=== PATIENT | female | born 1960 | race Hispanic/Latino ===

== ENCOUNTER 2019-12-13 23:40 | Inpatient (IN) | payer SELFPAY ==
[~2019-12-13] VITALS: Ht 157.5 cm; Wt 57.3 kg
[2019-12-14] MEDS ORDERED: ACETAMINOPHEN EXTRA STRENGTH 500 MG TABLET ONE (00:14)
[2019-12-14] MEDS ORDERED: IBUPROFEN 600 MG TABLET ONE (00:14)
[2019-12-14] MEDS ORDERED: ZOSYN 3.375GM+NS 50ML 50 ML IV ONE (00:14)
[2019-12-14 00:18] LABS: BASOPHILS % (AUTO) 0.3 % (0.0-5.0); EOSINOPHILS % (AUTO) 0.2 % (0.0-8.0); HEMATOCRIT 30.6 % (36-48); LYMPHOCYTES % (AUTO) 9.7 % (21.0-51.0); MEAN CORPUSCULAR VOLUME 87.9 fL (79-99); MONOCYTES % (AUTO) 7.9 % (3.0-13.0); NEUTROPHILS % (AUTO) 81.4 % (40.0-77.0); PLATELET COUNT (AUTO) 246 K/uL (130-400); RED BLOOD CELL COUNT(AUTO) 3.48 MIL/uL (4.00-5.50); RED CELL DISTRIBUTION WIDTH 13.2 % (11.0-15.5)
[2019-12-14 00:22] LABS: APPEARANCE,URINE Clear (CLEAR); BILIRUBIN,URINE Negative (NEGATIVE); COLOR,URINE Yellow (YELLOW); GLUCOSE, URINE (UA) Negative (NEGATIVE); KETONES,URINE Negative (NEGATIVE); LEUKOCYTE ESTERASE ,URINE Moderate (NEGATIVE); NITRATE,URINE Negative (NEGATIVE); OCCULT BLOOD,URINE Moderate (NEGATIVE); PROTEIN,URINE POS 1+ mg/dL (NEGATIVE)
[2019-12-14 00:30] LABS: CARBON DIOXIDE 25 mmol/L (21-32); CHLORIDE 102 mmol/L (101-111); CREATININE 0.8 mg/dL (0.5-1.5); GLOMERULAR FILTR. RATE CALC 78 mL/min (>60); GLUCOSE,RANDOM 131 mg/dL (70-105); POTASSIUM 3.6 mmol/L (3.5-5.1); SODIUM SERUM 135 mmol/L (136-145); UREA NITROGEN, BLOOD 13 mg/dL (7-18)
[2019-12-14 00:37] LABS: INR 0.88 (0.85-1.15); PARTIAL THROMBOPLASTIN TIME 29.8 SEC (26.3-35.5); PROTHROMBIN TIME 9.5 SEC (9.6-11.6)
[2019-12-14 00:49] LABS: ALANINE AMINOTRANSFERASE 195 U/L (12-78); ALBUMIN 3.1 g/dL (3.5-5.0); ASPARTATE AMINOTRANSFERASE 214 U/L (10-37); BILIRUBIN,TOTAL 0.3 mg/dL (0.2-1.0); CREATINE KINASE, TOTAL 186 U/L (21-232); MYOGLOBIN 25 ng/mL (10-92); TOTAL PROTEIN, SERUM 7.2 g/dL (6.0-8.3); TROPONIN I < 0.04 ng/mL (0.00-0.06)
[2019-12-14 00:50] LABS: BACTERIA,URINE Rare /HPF (None Seen); MUCUS,URINE Few LPF (None Seen); SQUAMOUS EPITHELIAL CELL,UR Moderate /HPF (0-2)
[2019-12-14] MEDS ORDERED: ONDANSETRON HCL 4 MG/2 ML VIAL IV PRN (02:15)
[2019-12-14] MEDS: LACTATED RINGERS 1000ML 1,000 ML IV SCH ×2 (02:15→15:35)
[2019-12-14] MEDS ORDERED: ACETAMINOPHEN 325 MG TAB PO PRN (02:30)
[2019-12-14] MEDS ORDERED: LACTATED RINGERS 1000ML 1,000 ML IV ONE (02:39)
[2019-12-14 07:47] LABS: BASOPHILS % (AUTO) 0.4 % (0.0-5.0); EOSINOPHILS % (AUTO) 0.2 % (0.0-8.0); HEMATOCRIT 29.8 % (36-48); LYMPHOCYTES % (AUTO) 19.8 % (21.0-51.0); MEAN CORPUSCULAR HEMOGLOBIN 29.5 pg (27.0-33.0); MEAN CORPUSCULAR HGB CONC 32.6 g/dL (32.0-36.0); MEAN CORPUSCULAR VOLUME 90.6 fL (79-99); MONOCYTES % (AUTO) 10.5 % (3.0-13.0); NEUTROPHILS % (AUTO) 68.8 % (40.0-77.0); PLATELET COUNT (AUTO) 224 K/uL (130-400); RED BLOOD CELL COUNT(AUTO) 3.29 MIL/uL (4.00-5.50); RED CELL DISTRIBUTION WIDTH 13.5 % (11.0-15.5); WHITE BLOOD COUNT (AUTO) 11.5 K/uL (4.8-10.8)
[2019-12-14] MEDS: ZOSYN 3.375GM+NS 50ML 50 ML IV SCH ×2 (08:00→16:08)
[2019-12-14 08:16] LABS: ALBUMIN 2.7 g/dL (3.5-5.0); BILIRUBIN,DIRECT 0.1 mg/dL (0.0-0.3); BILIRUBIN,TOTAL 0.4 mg/dL (0.2-1.0); CREATININE 0.7 mg/dL (0.5-1.5); POTASSIUM 3.7 mmol/L (3.5-5.1); TOTAL PROTEIN, SERUM 6.4 g/dL (6.0-8.3)
[2019-12-14] MEDS: FAMOTIDINE/PF 20 MG/2 ML VIAL IV SCH ×2 (09:00→20:02)
[2019-12-14] MEDS ORDERED: ACETAMINOPHEN 325 MG TAB ONE (10:15)
[2019-12-14] MEDS ORDERED: TRAMADOL HCL 50 MG TABLET PO PRN (10:45)
[2019-12-14 12:07] VITALS: BP 111/61
[2019-12-14 16:00] VITALS: BP 117/74
[2019-12-14] MEDS: ACETAMINOPHEN 325 MG TAB PO PRN (16:08)
[2019-12-14 20:00] VITALS: BP 101/66
--- NOTE | 2019-12-14 21:35 | NUR ---
FREQUENTLY IN & OUT OF BED, DOES NOT KEEP SCD'S IN PLACE Addendum: 12/14/19 at 2334 by GISELE PERSAUD RN RN Amended: Links added.
[2019-12-15] VITALS: BP 110/69
[2019-12-15] MEDS: ZOSYN 3.375GM+NS 50ML 50 ML IV SCH ×3 (00:32→16:09)
[2019-12-15] MEDS: ACETAMINOPHEN 325 MG TAB PO PRN (00:38)
[2019-12-15 03:54] VITALS: BP 100/70
[2019-12-15 06:04] LABS: BASOPHILS % (AUTO) 0.6 % (0.0-5.0); EOSINOPHILS % (AUTO) 1.1 % (0.0-8.0); HEMATOCRIT 29.4 % (36-48); LYMPHOCYTES % (AUTO) 33.7 % (21.0-51.0); MEAN CORPUSCULAR HEMOGLOBIN 28.8 pg (27.0-33.0); MEAN CORPUSCULAR HGB CONC 32.7 g/dL (32.0-36.0); MEAN CORPUSCULAR VOLUME 88.3 fL (79-99); MONOCYTES % (AUTO) 12.8 % (3.0-13.0); NEUTROPHILS % (AUTO) 51.6 % (40.0-77.0); PLATELET COUNT (AUTO) 263 K/uL (130-400); RED BLOOD CELL COUNT(AUTO) 3.33 MIL/uL (4.00-5.50); RED CELL DISTRIBUTION WIDTH 13.3 % (11.0-15.5); WHITE BLOOD COUNT (AUTO) 8.4 K/uL (4.8-10.8)
[2019-12-15 06:16] LABS: ALBUMIN 2.5 g/dL (3.5-5.0); BILIRUBIN,TOTAL 0.2 mg/dL (0.2-1.0); CREATININE 0.8 mg/dL (0.5-1.5); POTASSIUM 3.5 mmol/L (3.5-5.1); TOTAL PROTEIN, SERUM 6.5 g/dL (6.0-8.3)
[2019-12-15 08:00] VITALS: BP 111/73
[2019-12-15] MEDS: FAMOTIDINE/PF 20 MG/2 ML VIAL IV SCH ×2 (08:51→21:00)
[2019-12-15] MEDS: LACTATED RINGERS 1000ML 1,000 ML IV SCH (08:52)
[2019-12-15 09:02] LABS: % IRON SATURATION 13.9 % (22-44)
[2019-12-15] MEDS ORDERED: KETOROLAC TROMETHAMINE 15MG/ML IV SCH (09:45)
[2019-12-15 11:00] VITALS: BP 98/58
--- NOTE | 2019-12-15 14:53 | NUR ---
INITIAL SW met with patient. Patient lives with daughter, Corina Delgado, [phone]. No home services or DME. Patient is able to complete ADL's independently and drives. 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 PCP is Dr. Yadiel Bernal. Pharmacy is [facility] in [place]. DCP is home. Patient has no insurance or benefits. She is a [place] citizen. Patient was provided with community resources for post hospitalization follow up. Patient was also provided with Good RX card for prescriptions and educated on [facility] $4 medication program and [facility] [employer] $5 medication program. Patient is being assisted by [facility] for financial matters. Addendum: 12/15/19 at 1456 by GISELE SORIANO SS Amended: Links added.
[2019-12-15 16:00] VITALS: BP 115/16
[2019-12-15 20:00] VITALS: BP 123/73
[2019-12-16] VITALS: BP 107/65
[2019-12-16] MEDS: ZOSYN 3.375GM+NS 50ML 50 ML IV SCH ×2 (01:43→09:00)
[2019-12-16] MEDS: LACTATED RINGERS 1000ML 1,000 ML IV SCH ×2 (01:54→07:35)
[2019-12-16 03:59] VITALS: BP 108/68
[2019-12-16 06:30] LABS: ALBUMIN 2.6 g/dL (3.5-5.0); BILIRUBIN,DIRECT 0.1 mg/dL (0.0-0.3); BILIRUBIN,TOTAL 0.1 mg/dL (0.2-1.0); CREATININE 0.7 mg/dL (0.5-1.5); POTASSIUM 3.7 mmol/L (3.5-5.1); TOTAL PROTEIN, SERUM 6.6 g/dL (6.0-8.3)
[2019-12-16 07:41] VITALS: BP 117/69
[2019-12-16] MEDS: FAMOTIDINE/PF 20 MG/2 ML VIAL IV SCH (09:00)
[2019-12-16 11:06] VITALS: BP 109/56
[2019-12-16] MEDS: ACETAMINOPHEN 325 MG TAB PO PRN (13:56)
--- NOTE | 2019-12-16 16:56 | NUR ---
PT PENDING TRANSPORTATION HOME TEACH BACK TECHNIQUE GIVEN RE; NEW MEDS, S/S TO WATCH FOR AND WHEN TO CALL MD OR 911. FOLLOW UP WITH YOUR PRIMARY DOCTOR IN 2-4 DAYS FOR TRANSITION OF CARE. (WE WERE UNABLE TO MAKE AN APPOINTMENT SINCE OFFICE DID NOT ANSWER PRIOR TO YOUR DISCHARGE FROM THE HOSPITAL), PLEASE CALL TO SET UP AN APPOINTMENT. CALL YOUR PRIMARY DOCTOR IN YOU EXPERIENCE ANY FEVERS OF 101.0, DIFFICULTY VOIDING, BURNING UPON URINATION OR ANY DISCHARGE. COULD MEAN URINARY TRACT INFECTION IS BACK. WHICH WILL REQUIRE EVALUATIONG BY YOUR HEALTH CARE PROVIDER. MAKE SURE TO COMPLETE FULL COURSE OF ANTIBIOTIC THERAPY TO PREVENT SUPER INFECTION. DRINK AT LEAST 2 LITERS OF WATER PER DAY TO FLUSH OUT ANY BACTERIA IN YOU URINE. pls continue same orders as 12/13/2019> DC FOLLOW UP: <Follow up with PCP in 3 to 5 days., Follow up with Dr. Loera as an outpatient in 1 to 2 weeks. IV DISCONTINUED, NO BLEEDING, IV INTACT, PT IS AWAKE AND ALERT X3. DENIES ANY NEEDS AND HAS NO CONCERNS.
--- NOTE | 2019-12-16 17:45 | NUR ---
PT D/C TO FRONT LOBBY VIA W/C, NO DISTRESS, AAOX3, IN NO APPARENT DISTRESS OR CONCERNS.
--- NOTE | 2019-12-17 08:34 | NUR ---
DC HOME, NO CHANGE IN SERVICES Addendum: 12/17/19 at 0834 by MERCY HAMM RN CM Amended: Links added.
== END 2019-12-16 18:00 | disposition home or self-care (01) | DRG 872 ==
LOC: EDH 23:40 → EDHIP 23:41 → 3AH 12-14 12:23
PROVIDERS: ADMIT Internal Medicine; ATTEND Internal Medicine
DX: A41.9 Sepsis, unspecified organism (principal); N39.0 Urinary tract infection, site not specified; R74.8 Abnormal levels of other serum enzymes; K75.9 Inflammatory liver disease, unspecified; Z90.710 Acquired absence of both cervix and uterus; G43.909 Migraine, unspecified, not intractable, without status migrainosus
CPT/HCPCS: 36415; 71045; 74176; 76700; 80048; 80053; 80061; 80076; 81001; 82248; 82550; 82728; 83540; 83550; 83605; 83874; 84145; 84484; 85025; 85610; 85730; 87040; 87088; 93005; G0378; J1885; J2405; J2543; J3490; J7120

== ENCOUNTER 2021-09-26 22:35 | Emergency (ER) | payer OTHER ==
[~2021-09-26] VITALS: Ht 157.5 cm; Wt 59.4 kg
[2021-09-26 23:27] LABS: BASOPHILS % (AUTO) 0.5 % (0.0-5.0); EOSINOPHILS % (AUTO) 2.5 % (0.0-8.0); MEAN CORPUSCULAR HEMOGLOBIN 29.2 pg (27.0-33.0); MEAN CORPUSCULAR HGB CONC 32.7 g/dL (32.0-36.0); MEAN CORPUSCULAR VOLUME 89.2 fL (79-99); NEUTROPHILS % (AUTO) 31.7 % (40.0-77.0); PLATELET COUNT (AUTO) 285 K/uL (130-400); RED CELL DISTRIBUTION WIDTH 13.4 % (11.0-15.5); WHITE BLOOD COUNT (AUTO) 6.5 K/uL (4.8-10.8)
[2021-09-26 23:32] LABS: APPEARANCE,URINE Clear (CLEAR); BILIRUBIN,URINE Negative (NEGATIVE); COLOR,URINE Yellow (YELLOW); GLUCOSE, URINE (UA) Negative (NEGATIVE); KETONES,URINE Negative (NEGATIVE); LEUKOCYTE ESTERASE ,URINE Negative (NEGATIVE); NITRATE,URINE Negative (NEGATIVE); OCCULT BLOOD,URINE Negative (NEGATIVE); PH,URINE 6.5 (5.0-8.0); PROTEIN,URINE Negative (NEGATIVE); UROBILINOGEN,URINE 0.2 mg/dL (0.2-1.0)
[2021-09-26 23:36] LABS: CREATININE 0.6 mg/dL (0.5-1.5); POTASSIUM 3.8 mmol/L (3.5-5.1)
[2021-09-26 23:40] LABS: ALBUMIN 3.4 g/dL (3.5-5.0); BILIRUBIN,TOTAL 0.1 mg/dL (0.2-1.0); TOTAL PROTEIN, SERUM 7.6 g/dL (6.0-8.3)
[2021-09-27 00:48] VITALS: BP 118/74
== END 2021-09-27 00:50 | disposition home or self-care (01) ==
LOC: EDH 22:35
DX: G44.209 Tension-type headache, unspecified, not intractable (principal); F41.9 Anxiety disorder, unspecified; F32.A Depression, unspecified; E78.00 Pure hypercholesterolemia, unspecified; Z88.5 Allergy status to narcotic agent; Z90.49 Acquired absence of other specified parts of digestive tract; Z90.89 Acquired absence of other organs; Z98.890 Other specified postprocedural states
CPT/HCPCS: 36415; 80053; 81003; 82550; 84484; 85025; 93005

== ENCOUNTER → 2025-01-29 | Outpatient (CLI) | payer OTHER ==
--- NOTE | 2025-01-29 16:34 | HMCSR ---
APPROVED REPORT EXAM: Two-dimensional and M-mode echocardiogram with Doppler and color Doppler. INDICATION ICD: R06.02 Shortness of breath 2D Dimensions RVDd3.9 cmLVEF(%)58.3 (>50%)LVED Vol(simp.)77.0 mL IVSd0.8 (0.7-1.1cm)FS(%)31 %LVES Vol(simp.)36.0 mL LVDd4.4 (3.8-5.6cm)LA (2D)3.9 (1.6-4.0cm)LVEF(%, simp.)54 % PWd0.7 (0.7-1.1cm)Ao Root(2D)2.6 (2.0-3.7cm)LA ESV INDEX (BP)33.54 mL/m2 IVSs0.9 cmLVOT diam2.0 (1.8-2.4cm) LVDs3.0 (2.5-4.0cm)IVC diam1.3 cm PWs0.8 cm M-Mode Dimensions EPSS0.5 cm LA (MM)3.1 (1.6-4.0cm) Ao Root(MM)2.8 (2.0-3.7cm) Aortic Valve AoV Vmax1.4 m/Denzel Peak GR7.8 mmHgLVOT Vmax0.8 m/s AoV VTI0.3 mAo Mean GR4.3 mmHgLVOT VTI0.18 m PRIMO (VMAX)1.69 cm2AVA (VTI) 1.8 cm2 Mitral Valve MV E Vmax68.0 cm/sDECEL Euut183 ms MV A Vmax69.9 cm/sP 1/2 T46 ms E/A ratio1.0MVA (PHT)4.7 cm2 TDI E/E' Medial8.2E/E' Lateral6.9 Medial E' Peak V8.32 cm/sLateral E' Peak V9.85 cm/s Pulmonary Valve PV Vmax1.1 m/sPV VTI0.26 mPV Mean GR3.1 mmHg PV Peak GR5.1 mmHg Tricuspid Valve TR Vmax2.0 m/sRAP (EST) 3 hrGtMZEI32.7 mmHg TR Peak GR17.7 mmHg Left Ventricle The left ventricle is normal size. There is normal LV segmental wall motion. There is normal left gunjan tricular wall thickness. LVEF is 50-55%. The left ventricular diastolic function is normal. Right Ventricle The right ventricle is normal size. The right ventricular systolic function is normal. Atria The left atrium size is normal. The right atrium size is normal. Aortic Valve The aortic valve is normal in structure. Trivial aortic regurgitation is present. There is no aortic valvular stenosis. Mitral Valve The mitral valve is normal in structure. There is no mitral valve regurgitation noted. There is no mi tral valve stenosis. Tricuspid Valve The tricuspid valve is normal in structure. There is trace of tricuspid valve regurgitation noted. Pulmonic Valve The pulmonary valve is normal in structure. There is no pulmonic valvular regurgitation. Great Vessels The aortic root is normal in size. The IVC is normal in size and collapses >50% with inspiration. Pericardium There is no pericardial effusion. Other Information Quality : Adequate Conclusion LVEF is 50-55%.
== END | disposition home or self-care (01) ==
LOC: RAH 13:22
PROVIDERS: ATTEND Internal Medicine
DX: R06.02 Shortness of breath (principal)
CPT/HCPCS: 93306